=== PATIENT | male | born 1955 ===

== ENCOUNTER 2024-05-08 06:12 | Inpatient (IN) | payer MEDICARE ==
[~2024-05-08] VITALS: Ht 182.9 cm; Wt 106.2 kg
[2024-05-08] VITALS (31 sets, daily range): BP systolic 51–158; BP diastolic 10–108
--- NOTE | 2024-05-08 08:45 | NUR ---
ARRIVAL TO PCU PT ARRIVED TO PCU AT 0832. PT ABLE TO TRANSFER SELF FROM [facility] TO HOSPITAL BED BY ROLLING, TOLERATED WELL. RODRIGUEZ PRESENT AT TIME OF ARRIVAL, PATENT. PT LUNG SOUNDS CLEAR IN UPPER WITH WHEEZE NOTED IN LOWER RIGHT. NO REPORT OF CHEST PAIN/PRESSURE AT TIME OF ARRIVAL. SKIN INTACT. PT IRRITABLE AT TIME OF ARRIVAL, STATE "I'M NOT ANSWERING ANY QUESTIONS RIGHT NOW." TELE PLACED, PT SR AT 90'S.
[2024-05-08] MEDS ORDERED: NS 1,000 ML IV SCH ×3 (09:10→21:30)
[2024-05-08] MEDS ORDERED: FLU VACC TS2024-25(6MOS UP)/PF 45 MCG/0.5 ML SYRINGE IM SCH (09:15)
[2024-05-08 09:57] LABS: Source, Urine Clean Catch
[2024-05-08 10:16] LABS: Appearance, Urine Hazy (Clear); Bilirubin, Urine Neg (Neg); Blood, Urine 3+ (Neg); Color, Urine Yellow (P-Yellow); Glucose Qualitative, Urine Neg (Neg); Ketones, Urine Neg (Neg); Leukocyte Esterase, Urine Neg (Neg); Nitrite, Urine Neg (Neg); Protein, Urine 1+ (Neg); Urobilinogen, Urine NORM (Normal)
[2024-05-08 10:24] LABS: BASOPHILS ABSOLUTE AUTO 0.11 K/mm3 (0.00-0.23); BASOPHILS PERCENT AUTO 0 % (0-2); EOSINOPHILS PERCENT AUTO 0 % (0-6); Hemoglobin 17.6 g/dL (13.5-17.5); IMMATURE GRAN ABSOLUTE AUTO 0.25 K/mm3 (0.00-0.10); IMMATURE GRAN PERCENT AUTO 1 % (0-1); LYMPHOCYTES ABSOLUTE AUTO 0.98 K/mm3 (0.84-5.20); LYMPHOCYTES PERCENT AUTO 4 % (21-46); MONOCYTES ABSOLUTE AUTO 2.19 K/mm3 (0.16-1.47); MONOCYTES PERCENT AUTO 8 % (4-13); Mean Corpuscular HGB 29.4 pg (26.0-34.0); Mean Corpuscular HGB Conc 33.2 g/dL (31.5-36.5); Mean Corpuscular Volume 89 fL (80-100); NEUTROPHILS ABSOLUTE AUTO 23.88 K/mm3 (1.96-9.15); NEUTROPHILS PERCENT AUTO 87 % (41-73); Platelet Count 156 K/mm3 (150-400); RDW Coefficient Variation 13.9 % (11.7-14.2); RDW Standard Deviation 45.1 fL (35.1-46.3); Red Blood Cell Count 5.99 M/mm3 (4.30-5.90); White Blood Cell Count 27.41 K/mm3 (4.00-11.30)
[2024-05-08 10:41] LABS: Albumin, Blood 2.5 g/dL (3.4-5.0); Albumin/Globulin Ratio 0.7 (0.8-1.8); Bilirubin, Total 0.4 mg/dL (0.1-1.0); Calcium, Blood 7.9 mg/dL (8.5-10.1); Creatinine, Blood 4.18 mg/dL (0.60-1.20); Globulin, Blood 3.5 g/dL (2.2-4.0); Potassium, Blood 4.5 mmol/L (3.5-5.5)
[2024-05-08] MEDS ORDERED: ATORVASTATIN CA20 MG PO (12:02)
[2024-05-08] MEDS ORDERED: [UNRECOGNIZED DRUG - CODE] PO (12:02)
[2024-05-08] MEDS ORDERED: ABILIFY MYCITE5 M2 PO (12:03)
[2024-05-08 13:23] LABS: Hyaline Casts 50-100 /lpf (0-2)
[2024-05-08 13:25] LABS: Red Blood Cells, Urine 0-2 /hpf (0-2); Squamous Epithelial Cells Few /hpf (Few)
[2024-05-08 13:26] LABS: Amorphous Mod (0-Heavy); Bacteria Few /hpf; Calcium Oxalate Crystals Rare /hpf; Mucus Heavy (0-Heavy); Renal Epithelial Rare /hpf (0-Rare); Transitional Epithelial Cells Rare /hpf (0-Rare)
[2024-05-08] MEDS ORDERED: Ondansetron HCl 2 MG / ML 2ML Vial IV PRN (13:45)
[2024-05-08] MEDS ORDERED: Acetaminophen 325 MG TABLET PO PRN (13:45)
--- NOTE | 2024-05-08 16:56 | NUR ---
pt was 86% spo2 on room air; given 3 l/min and spo2 improved to 90-94%. he is cyanotic, pale, confused and tachypneic. States no pain but "I just don't feel good".
--- NOTE | 2024-05-08 18:18 | NUR ---
SHIFT SUMMARY PT A/OX2-3, CONFUSION NOTED. PT OCCASSIONALLY USES CALL LIGHT BUT OTHERWISE WILL YELL OUT TO STAFF THAT ARE IN THE HALLWAY. PT RPEORTS THAT HE CANNOT SEE AND WILL REQUEST STAFF TO FIND HIS PHONE AND DIAL NUMBERS FOR HIM. PT NOT COOPERATIVE FOR ANSWERING ORIENTATION QUESTIONS, STATES "I DON'T ANSWER QUESTIONS." PT COOPERATIVE WITH OTHER CARE. VSS, 3L NC APPLIED SATS INTO 80'S WHILE PT SLEEPS.. PT HAS RODRIGUEZ IN PLACE DRAINING TO GRAVITY, TANNER URINE. RECTAL THERMOMETER PLACED THIS SHIFT, CORE TEMP STABLE. PT SKIN COOL, CLAMMY. NS RUNNING PER ORDER
[2024-05-08 18:26] LABS: Bun/Creatinine Ratio 15.8 (12.0-20.0); Calcium, Blood 8.1 mg/dL (8.5-10.1); Creatinine, Blood 4.43 mg/dL (0.60-1.20); Potassium, Blood 4.2 mmol/L (3.5-5.5)
[2024-05-08 21:00] LABS: PCO2 Arterial 52.8 mmHg (35-45); PO2 Arterial 99.5 mmHg (80-100); pH Blood Arterial 7.12 (7.35-7.45)
[2024-05-08] MEDS ORDERED: NS 1,000 ML IV ONE (21:05)
[2024-05-08 21:29] LABS: Hematocrit 53.4 % (37.0-53.0); Hemoglobin 16.7 g/dL (13.5-17.5); Mean Corpuscular HGB 29.6 pg (26.0-34.0); Mean Corpuscular HGB Conc 31.3 g/dL (31.5-36.5); Mean Platelet Volume 12.2 fL (9.1-12.4); Platelet Count 143 K/mm3 (150-400); RDW Coefficient Variation 14.2 % (11.7-14.2); RDW Standard Deviation 49.8 fL (35.1-46.3); Red Blood Cell Count 5.65 M/mm3 (4.30-5.90); White Blood Cell Count 37.38 K/mm3 (4.00-11.30)
[2024-05-08 21:32] LABS: Mean Corpuscular Volume 95 fL (80-100)
[2024-05-08 22:13] LABS: Base Excess Venous -10.2 mmol/L; Bicarbonate Venous 15.7 mmol/L (24.0-30.0); PCO2 Venous 51.2 mmHg (38-42)
[2024-05-08 22:31] LABS: BAND PERCENT MAN 5 % (0-8); BASOPHILS PERCENT MAN 0 % (0-2); EOSINOPHILS PERCENT MAN 0 % (0-6); LYMPHOCYTES ABSOLUTE MAN 0.74 K/mm3 (0.84-5.20); LYMPHOCYTES PERCENT MAN 2 % (21-46); MONOCYTES ABSOLUTE MAN 1.86 K/mm3 (0.16-1.47); MONOCYTES PERCENT MAN 5 % (4-13); MYELOCYTE ABSOLUTE MAN 0.37 K/mm3 (0.00-0.00); MYELOCYTE PERCENT MAN 1 % (0-0); NEUTROPHILS ABSOLUTE MAN 34.38 K/mm3 (1.96-9.15); SEG NEUTROPHILS PERCENT MAN 87 % (41-73); TOTAL CELLS COUNTED 100
[2024-05-08 22:35] LABS: pH Blood Venous 7.16 (7.34-7.37)
[2024-05-08] MEDS ORDERED: Vancomycin HCL 2,500 MG in NS 500 ML IV ONE (22:40)
[2024-05-08] MEDS ORDERED: Vasopressin 20 UNITS in NS 100 ML IV SCH (22:40)
[2024-05-08] MEDS ORDERED: Sodium Bicarb 8.4% Inj 100 MEQ in Sodium Chloride 0.45% 1,000 ML IV SCH (22:40)
[2024-05-08] MEDS ORDERED: Ipratropium/Albuterol SulF 2.5-0.5MG/3 ML Amp INH SCH (22:45)
[2024-05-08] MEDS ORDERED: Albuterol 2.5 MG/3 ML VIAL INH PRN (22:45)
[2024-05-08] MEDS ORDERED: Azithromycin 500 MG in NS 250 ML IV SCH (22:46)
[2024-05-08] MEDS ORDERED: CefTRIAXone Sodium 1,000 MG in NS 100 ML IV SCH (22:46)
[2024-05-08] MEDS ORDERED: Sodium Bicarb 8.4% 1 MEQ/ML 50 ML Vial IV ONE ×2 (22:55→23:00)
--- NOTE | 2024-05-08 23:00 | NUR ---
PT ARRIVES TO ROOM ICU 9 S/P CRYSTAL MACHINING COORDINATOR CALL FROM PCU. PT ONLY ABLE TO MAKE NOISE TO QUESTIONS. BP VERY LOW, AND SATURATIONS VERY DIFFICULT TO OBTAIN. DR LYLE AND TITLE DEPARTMENT MANAGER ELVIRA FREEMAN TO ROOM. RESIDENT AND MEDICAL STUDENT ALSO TO ROOM. ORDERS HAVE BEEN RECEIVED. DR LYLE PLACES QUAD LUMEN CENTRAL LINE TO RIGHT IJ. LEVOPHED HAS BEEN HIGH 30 MCG'S/MIN AND VASOPRESSIN HAS BEEN INITIATED AT 0.04 UNITS. PT'S BLOOD PRESSURES HAVE BEGUN TO IMPROVE. TITRATION IN AFFECT TO BLOOD PRESSURES WITH MAP > 65. BLOOD PRESSURES IMPROVE PT'S MENTATION HAS IMPROVED. ASKED PT IF HE WANTED FAMILY OR ANYONE CALLED TO INFORM THEM THAT HE HAS TRANSFERRED TO ICU, AND THAT HE HAS REQUIRED ELEVATED CARE, PT ANSWERS FIRMLY NO. WILL REVIEW CHART AND PLAN OF CARE FOR THIS PT.
[2024-05-08 23:52] LABS: International Normalized Ratio 1.13
[2024-05-09] VITALS (89 sets, daily range): BP systolic 74–139; BP diastolic 20–98
[2024-05-09] MEDS ORDERED: Albumin (Human) 25gm/100ml 100 ML IV ONE (01:50)
[2024-05-09] MEDS ORDERED: Naloxone HCl 0.4MG / ML 1ML Vial IV ONE (02:00)
[2024-05-09] MEDS ORDERED: Cefepime HCl 1,000 MG in NS 100 ML IV SCH (03:05)
[2024-05-09] MEDS ORDERED: NS 250 ML IV PRN (03:20)
[2024-05-09] MEDS ORDERED: Cefepime 1000 mg Vial ONE (03:28)
[2024-05-09 04:11] LABS: Hemoglobin 14.4 g/dL (13.5-17.5); Mean Corpuscular HGB 29.2 pg (26.0-34.0); Mean Corpuscular HGB Conc 32.7 g/dL (31.5-36.5); Mean Platelet Volume 11.9 fL (9.1-12.4); Platelet Count 130 K/mm3 (150-400); RDW Coefficient Variation 14.4 % (11.7-14.2); Red Blood Cell Count 4.93 M/mm3 (4.30-5.90); White Blood Cell Count 29.87 K/mm3 (4.00-11.30)
[2024-05-09 04:19] LABS: PCO2 Arterial 32.9 mmHg (35-45); PO2 Arterial 90.8 mmHg (80-100); pH Blood Arterial 7.44 (7.35-7.45)
[2024-05-09 04:23] LABS: U Amphetamine Screen Not Detected; U Barbituate Screen Not Detected; U Benzodiazapine Screen DETECTED; U Buprenorphine Screen Not Detected; U Cannabinoids Screen DETECTED; U Cocaine Screen Not Detected; U Methadone Screen Not Detected; U Methamphetamine Screen Not Detected; U Opiates Screen Not Detected; U Oxycodone Screen Not Detected; U Phencyclidine Screen Not Detected
[2024-05-09 04:30] LABS: Mean Corpuscular Volume 89 fL (80-100)
--- NOTE | 2024-05-09 06:30 | NUR ---
HAVE BEEN ABLE TO TITRATED LEVOPHED DOWN TO 16 MCG'S/MIN. PT MAINTAINS SATURATIONS > 90 PERCENT. FIO2 HAS BEEN DECREASED TO 55 PERCENT. BLOOD PRESSURES REMAIN WITH MAP > 65. PT ABLE TO FOLLOW CONVERSATION IF PROMPTED. HAS BEEN COMPLIANT WITH WEARING BIPAP MASK. HAS BEEN INCONTINENT TO STOOL TWICE THIS NIGHT. HAS BEEN ABLE TO ASSIST WITH TURNS FOR CLEANING. WILL CONTINUE TO MONITOR PT, AND WILL REPORT OFF TO ONCOMING RN.
[2024-05-09 06:56] LABS: Influenza A, PCR NEGATIVE (NEGATIVE); Influenza B, PCR NEGATIVE (NEGATIVE); Resp Syncytial Virus, PCR NEGATIVE (NEGATIVE); SARS-Cov-2 (COVID-19) PCR, MMC NEGATIVE (NEGATIVE)
[2024-05-09 08:12] LABS: Albumin/Globulin Ratio 0.7 (0.8-1.8); Bilirubin, Total 0.3 mg/dL (0.1-1.0); Bun/Creatinine Ratio 20.2 (12.0-20.0); Calcium, Blood 6.9 mg/dL (8.5-10.1); Creatinine, Blood 3.71 mg/dL (0.60-1.20); Globulin, Blood 2.9 g/dL (2.2-4.0); Phosphorus, Blood 4.5 mg/dL (2.5-4.9); Potassium, Blood 4.5 mmol/L (3.5-5.5); Total Protein, Blood 4.9 g/dL (6.4-8.2)
[2024-05-09] MEDS ORDERED: Heparin Sodium 5000 Units/ML 1ML MDV SC SCH (09:00)
[2024-05-09] MEDS ORDERED: Lactated Ringer's 1,000 ML IV SCH (13:00)
[2024-05-09 16:46] LABS: Adenovirus Not Detected (NOT DETECT); Bordetella pertussis Not Detected (NOT DETECT); Chlamydophila pneumoniae Not Detected (NOT DETECT); Coronavirus 229E Not Detected (NOT DETECT); Coronavirus HKU1 Not Detected (NOT DETECT); Coronavirus NL63 Not Detected (NOT DETECT); Coronavirus OC43 Not Detected (NOT DETECT); Human Metapneumovirus Not Detected (NOT DETECT); Human Rhinovirus/Enterovirus Not Detected (NOT DETECT); Influenza A/2009-H1 Not Detected (NOT DETECT); Influenza A/H1 Not Detected (NOT DETECT); Influenza A/H3 Not Detected (NOT DETECT); Influenza B Not Detected (NOT DETECT); Mycoplasma pneumoniae Not Detected (NOT DETECT); Parainfluenza Virus 1 Not Detected (NOT DETECT); Parainfluenza Virus 2 Not Detected (NOT DETECT); Parainfluenza Virus 3 Not Detected (NOT DETECT); Parainfluenza Virus 4 Not Detected (NOT DETECT); Respiratory Syncytial Virus Not Detected (NOT DETECT); SARS-Cov-2 (COVID-19), BioFire Not Detected (NOT DETECT)
[2024-05-09] MEDS ORDERED: Piperacillin/Tazobactam Sod 4.5 GM in NS 100 ML IV SCH (17:14)
--- NOTE | 2024-05-09 17:52 | NUR ---
SUMMARY PT A/O X4. YELLS OUT FOR ASSISTANCE RATHER THAN USING CALL LIGHT. WAS ON THE BIPAP MOST OF THE DAY WITH BREAKS FOR ABOUT AN HOUR SEVERAL TIMES TO 4L NC. PT WILL GET SOB, INCREASED WOB, GETS CONFUSED, AND PANICS AFTER ABOUT AN HOUR OFF BIPAP. DOES NOT DESATURATE. ONCE BIPAP IS PLACED PT WILL DOZE OFF TO SLEEP. WHILE DOING ORAL CARE TODAY, NOTICED PT HAS AN ABCESSED TOOTH. DENTAL HYGIENIST ASSESSED TOOTH. DR. GOMEZ MADE AWARE, ABX CHANGED, AND SWAB COLLECTED. DR. BARR IN TO SEE PT TONIGHT. TITRATING LEVOPHED DOWN AND OFF VASOPRESSIN FOR MOST OF THE DAY. NO SIGN OF DISTRESS.
[2024-05-09] MEDS ORDERED: CALCIUM GLUC IN NACL, ISO-OSM 100 ML IV ONE (18:30)
[2024-05-09 18:50] LABS: Albumin, Blood 2.2 g/dL (3.4-5.0); Anion Gap 12 mmol/L (3-11); Blood Urea Nitrogen 70 mg/dL (8-24); Bun/Creatinine Ratio 27.3 (12.0-20.0); CO2, Blood 25 mmol/L (21-32); Calcium, Blood 6.7 mg/dL (8.5-10.1); Chloride, Blood 105 mmol/L (98-108); Creatinine, Blood 2.56 mg/dL (0.60-1.20); Glomerular Filtration Rate 27 (60-); Glucose, Blood 150 mg/dL (70-99); Phosphorus, Blood 2.8 mg/dL (2.5-4.9); Sodium, Blood 138 mmol/L (136-145)
--- NOTE | 2024-05-09 20:00 | NUR ---
ASSUMED CARE OF PT AT 1900. REPORT RECEIVED AT BEDSIDE. PT PRESENTS IN BED. WEARING BIPAP AT THIS TIME. VSS WITH LEVOPHED AT 2 MCG'S/MIN. WILL MONITOR FOR ABILITY TO TITRATE LEVOPHED TO OFF ABLE. PT MAINTAINS MAP > 65 AT THIS TIME AND HAS SATURATIONS > 90 PERCENT WITH BIPAP. HAVE GIVEN PT BRIEF BREAK TO 4 L/M OXYGEN PER NASAL CANNULA TO SPEAK WITH HIS SISTER PER TELEPHONE. PT GIVES VERBAL CONSENT TO GIVE INFORMATION TO HIS SISTER. ALSO TO HIS FRIEND DILLON. WILL REVIEW CHART ADN PLAN OF CARE FOR THIS PT.
[2024-05-10] VITALS (47 sets, daily range): BP systolic 92–134; BP diastolic 49–81
[2024-05-10 05:39] LABS: Hemoglobin 11.1 g/dL (13.5-17.5); Mean Corpuscular HGB 29.5 pg (26.0-34.0); Mean Corpuscular HGB Conc 32.6 g/dL (31.5-36.5); Mean Corpuscular Volume 90 fL (80-100); Mean Platelet Volume 11.3 fL (9.1-12.4); Platelet Count 134 K/mm3 (150-400); RDW Coefficient Variation 14.7 % (11.7-14.2); RDW Standard Deviation 49.1 fL (35.1-46.3); Red Blood Cell Count 3.76 M/mm3 (4.30-5.90); White Blood Cell Count 20.51 K/mm3 (4.00-11.30)
[2024-05-10 06:07] LABS: Anion Gap 13 mmol/L (3-11); Blood Urea Nitrogen 61 mg/dL (8-24); Bun/Creatinine Ratio 29.5 (12.0-20.0); CO2, Blood 25 mmol/L (21-32); Chloride, Blood 106 mmol/L (98-108); Creatinine, Blood 2.07 mg/dL (0.60-1.20); Glomerular Filtration Rate 34 (60-); Glucose, Blood 120 mg/dL (70-99); Phosphorus, Blood 3.3 mg/dL (2.5-4.9); Potassium, Blood 4.1 mmol/L (3.5-5.5); Sodium, Blood 140 mmol/L (136-145); Vancomycin, Random 10.7 ug/mL
--- NOTE | 2024-05-10 06:45 | NUR ---
PT CONTINUES ON 2 MCG'S/MIN LEVOPHED TO MAINTAIN MAP > 65. PT HAS BEEN ON BIPAP AND HAS BREAKS TO NC 3-4 LITERS PER NASAL CANNULA. PT HAS PERIODS WHEREAS HE CALLS OUT, AND CURSES. PT NEEDS REASSURANCE, AND AFIRMATIONS THAT HE IS GETTING BETTER. HAS BEEN MEDICATED ONCE WITH ZOFRAN FOR COMPLAINT OF NAUSEA WHICH WAS AFFECTIVE. WILL CONTINUE TO MONITOR PT, AND WILL REPORT OFF TO ONCOMING RN.
[2024-05-10] MEDS ORDERED: Vancomycin HCL 1,500 MG in NS 250 ML IV SCH (08:00)
[2024-05-10 15:16] LABS: Adenovirus F 40/41 Not Detected (NOT DETECT); Astrovirus Not Detected (NOT DETECT); Campylobacter Sp Not Detected (NOT DETECT); Cryptosporidium Not Detected (NOT DETECT); Cyclospora Cayetanensis Not Detected (NOT DETECT); E. Coli O157 Not Detected (NOT DETECT); Entamoeba Histolytica Not Detected (NOT DETECT); Enteroaggregative E. coli-EAEC Not Detected (NOT DETECT); Enteropathogenic E. coli-EPEC Not Detected (NOT DETECT); Enterotoxigenic E. coli-ETEC Not Detected (NOT DETECT); Giardia Lamblia Not Detected (NOT DETECT); Norovirus GI/GII Not Detected (NOT DETECT); Plesiomonas Shigelloides Not Detected (NOT DETECT); Rotavirus A Not Detected (NOT DETECT); Salmonella Sp Not Detected (NOT DETECT); Sapovirus Not Detected (NOT DETECT); Shiga Toxin-prod E. coli-STEC Not Detected (NOT DETECT); Shigella/Enteroin E. coli-EIEC Not Detected (NOT DETECT); Vibrio Cholerae Not Detected (NOT DETECT); Vibrio Sp Not Detected (NOT DETECT); Yersinia Enterocolitica Not Detected (NOT DETECT)
[2024-05-10] MEDS ORDERED: CALCIUM GLUC IN NACL, ISO-OSM 100 ML IV ONE (15:20)
--- NOTE | 2024-05-10 18:41 | NUR ---
SUMMARY PT A/O X4 MOST OF THE DAY. FORGETFUL ABOUT WHERE HE IS AT TIMES BUT CAN ADDRESS THIS RN BY NAME EVERY ENCOUNTER. OOB TO CHAIR FOR A FEW HOURS THIS AM. 1 PERSON ASSIST. PT WILL C/O GETTING DIZZY WHEN UP BUT BP IS STABLE, SPO2 IS STABLE, AND PT'S GAIT IS NOT AFFECTED. STATES HE JUST PANICS SOMETIMES. WILL YELL OUT FOR ASSISTANCE MOST OF THE TIME, SOMETIMES USES CALL LIGHT. SPOKE WITH DR. BUCIO ABOUT RESTARTING HOME MEDS THIS AM, NO NEW ORDERS. TOLERATING PO INTAKE WELL. WORE BIPAP FOR A NAP ONCE TODAY OTHERWISE HAS BEEN ON RA MOST OF THE DAY. OFF LEVOPHED SINCE 0700 AND MAP HAS BEEN 65 OR GREATER. HAD SOME FRIENDS COME BY TO SEE HIM TODAY AND ALSO SPOKE WITH SOME FRIENDS ON THE PHONE. NO SIGN OF DISTRESS.
[2024-05-10] MEDS ORDERED: D5W-1/2NS KCl 10mEq 1,000 ML IV SCH (19:00)
[2024-05-10] MEDS ORDERED: Atorvastatin 10 MG Tab PO SCH (21:00)
[2024-05-10] MEDS ORDERED: Lithium Carbonate 450 MG TabCR PO SCH (21:00)
--- NOTE | 2024-05-10 21:34 | NUR ---
ASSUMPTION OF CARE/ASSESSMENT: ASSUMED CARE OF PT AT 1900; REPORT RECIEVED FROM RAKAN LUX. PT IN BED, A&O X 4, OCCASIONALLY YELLING OUT; PT REDIRECTABLE AT THIS TIME. CURRENTLY ON AND OFF THE BIPAP, ON NC @ 1-2 LPM WHEN OFF. BIPAP IS ON AT THIS TIME WITH SETTINGS 30/09, FO02 30%, TV 600-700 AND RATE OF 16. PT CURRENTLY SR ON MONITOR WITH HR 70'S, BP STABLE AND DENIES CHEST PAIN/PRESSURE AT THIS TIME. LUNGS CLEAR T/O WITH DIM BASES, SPO2 95<, AND DENIES SOB AT THIS TIME. ABD DISTENDED, TENDER, + BT AND C/O STOMACH PAINS. INTERMITTEN NAUSEA AT START OF SHIFT; PRN ZOFRAN GIVEN. PPP X 4, EDEMATOUS 2+ IN EXTREMITIES. RIJ PATENT AND INFUSING D5 1/2 NS W/ 10 MEQ KCL @ 100 MLS/HR. PT RESTING AT THIS TIME. BED LOWERED, CALL LIGHT IN REACH.
[2024-05-11] VITALS: BP 97/68
[2024-05-11] MEDS ORDERED: LORazepam 0.5 MG Tab PO ONE (00:40)
[2024-05-11 01:00] VITALS: BP 97/65
[2024-05-11 02:06] VITALS: BP 100/67
--- NOTE | 2024-05-11 02:53 | NUR ---
PT TRANSFER TO [place] [id number]: PT TRANSPORTED TO NEW ROOM VIA BED AND SLID OVER TO NEW BED. PT BELONGINGS BROUGHT UP WITH PT. PT LEFT THE UNIT AT 0245.
[2024-05-11 06:49] LABS: Hematocrit 30.7 % (37.0-53.0); Hemoglobin 9.9 g/dL (13.5-17.5); Mean Corpuscular HGB 29.7 pg (26.0-34.0); Mean Corpuscular HGB Conc 32.2 g/dL (31.5-36.5); Mean Corpuscular Volume 92 fL (80-100); Mean Platelet Volume 10.9 fL (9.1-12.4); NRBC ABSOLUTE 0.03 K/mm3 (0.00-0.02); NRBC Auto 0.2 /100 WBC (0.0-0.2); Platelet Count 172 K/mm3 (150-400); RDW Coefficient Variation 15.2 % (11.7-14.2); RDW Standard Deviation 50.7 fL (35.1-46.3); Red Blood Cell Count 3.33 M/mm3 (4.30-5.90); White Blood Cell Count 14.25 K/mm3 (4.00-11.30)
[2024-05-11 07:19] LABS: Albumin, Blood 2.2 g/dL (3.4-5.0); Albumin/Globulin Ratio 0.8 (0.8-1.8); Bilirubin, Total 0.4 mg/dL (0.1-1.0); Bun/Creatinine Ratio 24.3 (12.0-20.0); Calcium, Blood 7.4 mg/dL (8.5-10.1); Creatinine, Blood 1.77 mg/dL (0.60-1.20); Globulin, Blood 2.8 g/dL (2.2-4.0); Potassium, Blood 3.9 mmol/L (3.5-5.5)
[2024-05-11 07:36] LABS: BASOPHILS PERCENT MAN 0 % (0-2); EOSINOPHILS ABSOLUTE MAN 0.28 K/mm3 (0.00-0.68); EOSINOPHILS PERCENT MAN 2 % (0-6); LYMPHOCYTES ABSOLUTE MAN 0.57 K/mm3 (0.84-5.20); LYMPHOCYTES PERCENT MAN 4 % (21-46); METAMYELOCYTE ABSOLUTE MAN 0.28 K/mm3 (0.00-0.00); METAMYELOCYTE PERCENT MAN 2 % (0-0); MONOCYTES ABSOLUTE MAN 0.71 K/mm3 (0.16-1.47); MONOCYTES PERCENT MAN 5 % (4-13); NEUTROPHILS ABSOLUTE MAN 12.39 K/mm3 (1.96-9.15); SEG NEUTROPHILS PERCENT MAN 87 % (41-73); TOTAL CELLS COUNTED 100
[2024-05-11] MEDS ORDERED: Piperacillin/Tazobactam Sod 4.5 GM in NS 100 ML IV SCH (08:00)
[2024-05-11 08:05] VITALS: BP 124/68
[2024-05-11] MEDS ORDERED: Clindamycin Phosphate 300 MG in NS 50 ML IV SCH (09:00)
[2024-05-11] MEDS ORDERED: ARIPiprazole 5 MG Tab PO SCH (09:00)
[2024-05-11] MEDS ORDERED: CefTRIAXone Sodium 2,000 MG in NS 100 ML IV SCH (09:00)
--- NOTE | 2024-05-11 09:00 | NUR ---
Pt laying in bed yelling out, he is somewhat redirectable and is appologetic, when he needs to use the bathroom he is not redirectable and just charges ahead not cognisant of lines, and can get agitated, a/ox2-3, does try to follow commands, lungs have exp wheeze, sats drop to 84% on r/a, currently on 2 liters 02 via n/c, no cough noted, hrr, tele in place running sr with bbb in the 80's, 2+ edema noted to b/l le, ppp+1, cap refil < 3sec, vs stable, afebrile, piv to lfa site is clear and patent, btx4, abd large soft, pullups in place, skin c/w/d, ulisses blair, call light in reach.
[2024-05-11] MEDS ORDERED: CLINDAMYCIN PHOSPHATE/D5W 50 ML IV SCH (09:03)
[2024-05-11] MEDS ORDERED: LORazepam 1 MG Tab PO ONE (11:10)
--- NOTE | 2024-05-11 12:40 | NUR ---
pt has been agitated, is trying to cooperate, tele was placed on his back as he was pulling it off, and not tolerating it, he is responsive to holding his hand, he calms, called Dr. Cleveland for something for anxiety, recieved order for 1mg ativan x1, this was given with good results, he is sleeping with bipap on at this time. call light in reach.
[2024-05-11 17:05] VITALS: BP 106/62
--- NOTE | 2024-05-11 18:32 | NUR ---
PT DOES NOT USE CALL LITE, MINIMALLY DIRECTABLE. OFTEN JUST BOUNCES OUT OF BED AND I NEED TO RUN IN TO PROTECT LINES AND BIPAP, PLACE N/C. PT DID PULL IV TODAY. REPLACED. HE DID MAKE AND RECEIVE CALLS TODAY. WAS ONLY ON BIPAP PERHAPS 1 HOUR THIS AFTERNOON. CONTINUES TO BE ONE ASSIST TO BSC FOR SAFETY. MORE LINES THAN STRENGTH TO GET UP AND ABOUT. BED IN LOW POSITION CALL LITE IN REACH, DOES NOT CALL. BED ALARM ON FOR SAFETY
[2024-05-11 20:30] VITALS: BP 106/57
[2024-05-12 04:01] VITALS: BP 138/85
[2024-05-12 05:08] LABS: Hemoglobin 9.8 g/dL (13.5-17.5); Mean Corpuscular HGB 30.2 pg (26.0-34.0); Mean Corpuscular HGB Conc 31.6 g/dL (31.5-36.5); Mean Corpuscular Volume 96 fL (80-100); Mean Platelet Volume 10.8 fL (9.1-12.4); NRBC ABSOLUTE 0.02 K/mm3 (0.00-0.02); NRBC Auto 0.1 /100 WBC (0.0-0.2); Platelet Count 211 K/mm3 (150-400); RDW Coefficient Variation 15.5 % (11.7-14.2); RDW Standard Deviation 53.3 fL (35.1-46.3); Red Blood Cell Count 3.24 M/mm3 (4.30-5.90); White Blood Cell Count 14.63 K/mm3 (4.00-11.30)
[2024-05-12 05:30] LABS: Bun/Creatinine Ratio 23.9 (12.0-20.0); Calcium, Blood 7.8 mg/dL (8.5-10.1); Creatinine, Blood 1.38 mg/dL (0.60-1.20); Potassium, Blood 4.3 mmol/L (3.5-5.5)
[2024-05-12 05:48] LABS: BAND PERCENT MAN 2 % (0-8); BASOPHILS ABSOLUTE MAN 0.14 K/mm3 (0.00-0.23); BASOPHILS PERCENT MAN 1 % (0-2); EOSINOPHILS ABSOLUTE MAN 0.14 K/mm3 (0.00-0.68); EOSINOPHILS PERCENT MAN 1 % (0-6); LYMPHOCYTES ABSOLUTE MAN 0.58 K/mm3 (0.84-5.20); LYMPHOCYTES PERCENT MAN 4 % (21-46); MONOCYTES ABSOLUTE MAN 1.02 K/mm3 (0.16-1.47); MONOCYTES PERCENT MAN 7 % (4-13); MYELOCYTE ABSOLUTE MAN 0.29 K/mm3 (0.00-0.00); MYELOCYTE PERCENT MAN 2 % (0-0); NEUTROPHILS ABSOLUTE MAN 12.43 K/mm3 (1.96-9.15); SEG NEUTROPHILS PERCENT MAN 83 % (41-73); TOTAL CELLS COUNTED 100
--- NOTE | 2024-05-12 06:20 | NUR ---
SHIFT SUMMARY PT IS CURRENTLY IN BED, TALKING OUT LOUD. PT HAS BEEN AOX3, BUT ANXIOUS AND IMPULSIVE. HE HAS BEEN YELLING OUT WHEN HE IS NEED OF HELP, DESPITE REINFORCED EDUCATION ABOUT CALL LIGHT. PT HAS BEEN TOSSING AND TURNING THROUGHOUT THE NIGHT. PT HAS CONSTANTLY TAKEN OFF THE CPAP AND THEN WANTED IT BACK ON. HOWEVER, PT HAS BEEN COOPERATIVE. NO ACUTE EVENTS OVERNIGHT.
[2024-05-12 09:56] VITALS: BP 145/84
--- NOTE | 2024-05-12 10:09 | NUR ---
RECEIVED CALL FROM JUANCHO AT [facility], SEEKING UPDATE ON PATIENT'S CONDITION. UPDATED HER REGARDING PATIENT'S MENTAL CLARITY AND ABCESS CX RESULTS. STATED SHE WILL CALL BACK TOMORROW FOR ANOTHER UPDATE.
--- NOTE | 2024-05-12 15:13 | NUR ---
SHIFT SUMMARY PATIENT IN BED THIS SHIFT. INCONTINENT OF URINE SEVERAL TIMES, DOES NOT LET STAFF KNOW WHEN HE NEEDS TO GO, UNABLE TO PROVIDE ANSWER TO WHETHER OR NOT HE CAN FEEL THE URGE. CONTINUOUS INFUSION OF D5 1/2 WITH K+. TOLERATING IV ABX WELL. EATING ADEQUATELY. NEGATIVE BLOOD CX X 3 DAYS. USING BETWEEN 1-2 LITERS OXYGEN NC THROUGHOUT SHIFT, DESATS TO MID 80'S ON ROOM AIR. YELLING OUT NONSENSICAL SPEECH THROUGHOUT THE SHIFT, REMINDED OF NOT YELLING OUT, NO CHANGE TO BEHAVIOR. NOT ABLE TO MAKE NEEDS KNOWN CONSISTENTLY. CALL LIGHT IN REACH. CARES ONGOING.
[2024-05-12 15:53] VITALS: BP 122/72
[2024-05-12 19:49] VITALS: BP 124/76
[2024-05-13 05:09] VITALS: BP 114/91
--- NOTE | 2024-05-13 06:12 | NUR ---
SHIFT SUMMARY PT IS RESTING IN BED CURRENTLY. PT HAS BEEN AOX3, IMPULSIVE AND CONFUSED. PT HAS BEEN YELLING IF HE NEEDS ANYTHING. PT HAS NOT BEEN REDIRECTABLE IN THIS ASPECT. PT HAS BEEN PLEASANT AND COOPERATIVE WHEN TALKING TO PT. PT ABLE TO FOLLOW COMMANDS. PT PULLED OUT IV OVERNIGHT. OTHERWISE, PT HAD UNEVENTFUL NIGHT.
[2024-05-13 07:09] LABS: Bun/Creatinine Ratio 19.8 (12.0-20.0); Calcium, Blood 7.8 mg/dL (8.5-10.1); Creatinine, Blood 1.16 mg/dL (0.60-1.20); Potassium, Blood 4.4 mmol/L (3.5-5.5)
[2024-05-13 07:38] LABS: Hematocrit 32.2 % (37.0-53.0); Hemoglobin 9.8 g/dL (13.5-17.5); Mean Corpuscular HGB 30.1 pg (26.0-34.0); Mean Corpuscular HGB Conc 30.4 g/dL (31.5-36.5); Mean Corpuscular Volume 99 fL (80-100); Mean Platelet Volume 10.7 fL (9.1-12.4); NRBC ABSOLUTE 0.03 K/mm3 (0.00-0.02); NRBC Auto 0.2 /100 WBC (0.0-0.2); Platelet Count 249 K/mm3 (150-400); RDW Coefficient Variation 15.7 % (11.7-14.2); RDW Standard Deviation 55.7 fL (35.1-46.3); Red Blood Cell Count 3.26 M/mm3 (4.30-5.90); White Blood Cell Count 15.98 K/mm3 (4.00-11.30)
[2024-05-13 07:41] VITALS: BP 129/75
[2024-05-13 08:22] LABS: BAND PERCENT MAN 5 % (0-8); BASOPHILS PERCENT MAN 0 % (0-2); EOSINOPHILS PERCENT MAN 0 % (0-6); LYMPHOCYTES ABSOLUTE MAN 0.95 K/mm3 (0.84-5.20); LYMPHOCYTES PERCENT MAN 6 % (21-46); METAMYELOCYTE ABSOLUTE MAN 0.79 K/mm3 (0.00-0.00); METAMYELOCYTE PERCENT MAN 5 % (0-0); MONOCYTES ABSOLUTE MAN 1.75 K/mm3 (0.16-1.47); MONOCYTES PERCENT MAN 11 % (4-13); MYELOCYTE ABSOLUTE MAN 0.31 K/mm3 (0.00-0.00); MYELOCYTE PERCENT MAN 2 % (0-0); NEUTROPHILS ABSOLUTE MAN 12.14 K/mm3 (1.96-9.15); SEG NEUTROPHILS PERCENT MAN 71 % (41-73); TOTAL CELLS COUNTED 100
[2024-05-13] MEDS ORDERED: Amoxicillin/Clavulanate K 500 MG Tab PO SCH (09:00)
[2024-05-13] MEDS ORDERED: Lactobacil 2-S.Thermo-Bifido 1 1 Cap PO SCH (09:00)
[2024-05-13] MEDS ORDERED: Lithium Carbon450 MG PO (12:15)
[2024-05-13] MEDS ORDERED: AMOCLA500 PO (12:16)
[2024-05-13] MEDS ORDERED: VISBIOME 112.51 EACH PO (12:18)
--- NOTE | 2024-05-13 14:18 | NUR ---
PT WAS DISCHARGED BACK HOME PER MD ORDERS. PT LEFT WITH DISCHARGE PACKET. PT HAD NO QUESTIONS OR CONCERNS. ALL PIV'S REMVOED.
[2024-05-13] MEDS ORDERED: Ipratropium/Albuterol SulF 2.5-0.5MG/3 ML Amp INH SCH (22:45)
== END 2024-05-13 14:12 | disposition home or self-care (01) | DRG 871 ==
LOC: PCU 06:12 → ICUE 06:12 → MEDS 05-11 02:41
PROVIDERS: Hospitalist; Internal Medicine; Internal Medicine Critical Care Medicine; Nurse Practitioner Acute Care; Student in an Organized Health Care Education/Training Program; ADMIT Student in an Organized Health Care Education/Training Program
PROC: 3E033XZ Introduction of Vasopressor into Peripheral Vein, Percutaneous Approach (ICD-10-PCS; principal; 2024-05-08)
PROC: 5A09357 Assistance with Respiratory Ventilation, Less than 24 Consecutive Hours, Continuous Positive Airway Pressure (ICD-10-PCS; 2024-05-08)
PROC: 4A133R1 Monitoring of Arterial Saturation, Peripheral, Percutaneous Approach (ICD-10-PCS; 2024-05-08)
PROC: 3E03329 Introduction of Other Anti-infective into Peripheral Vein, Percutaneous Approach (ICD-10-PCS; 2024-05-08)
PROC: 30233J1 Transfusion of Nonautologous Serum Albumin into Peripheral Vein, Percutaneous Approach (ICD-10-PCS; 2024-05-09)
DX: A41.9 Sepsis, unspecified organism (principal); J18.9 Pneumonia, unspecified organism; R65.21 Severe sepsis with septic shock; J96.01 Acute respiratory failure with hypoxia; N17.9 Acute kidney failure, unspecified; E87.20 Acidosis, unspecified; E66.01 Morbid (severe) obesity due to excess calories; F25.0 Schizoaffective disorder, bipolar type; E78.5 Hyperlipidemia, unspecified; M54.50 Low back pain, unspecified; G89.29 Other chronic pain; D69.6 Thrombocytopenia, unspecified; Z96.652 Presence of left artificial knee joint; H91.90 Unspecified hearing loss, unspecified ear; F17.210 Nicotine dependence, cigarettes, uncomplicated; F12.10 Cannabis abuse, uncomplicated; N18.30 Chronic kidney disease, stage 3 unspecified; R53.1 Weakness; K04.7 Periapical abscess without sinus; D46.9 Myelodysplastic syndrome, unspecified; G47.33 Obstructive sleep apnea (adult) (pediatric); D63.1 Anemia in chronic kidney disease; Z79.899 Other long term (current) drug therapy; Z87.19 Personal history of other diseases of the digestive system; Z90.89 Acquired absence of other organs
CPT/HCPCS: 0202U; 0241U; 36415; 36556; 36600; 71045; 80048; 80053; 80069; 80202; 81001; 82330; 82550; 82728; 82803; 83540; 83550; 83605; 83735; 83880; 84100; 84145; 84484; 85025; 85027; 85610; 87040; 87070; 87205; 87507; 93005; 93010; 94640; 94660; 94664; 94760; 94762; A9270; C1751; J0456; J0612; J0692; J0696; J0736; J1644; J2310; J2405; J2543; J3370; J7030; J7040; J7050; J7060; J7120; P9047